=== PATIENT | male | born 1970 | race Caucasian/White ===

== ENCOUNTER 2018-08-30 10:59 | Emergency (ER) | payer OTHER ==
[~2018-08-30] VITALS: Ht 175.3 cm; Wt 108.9 kg
[~2018-08-30 10:59] MED LIST: AMLODIPINE10 M1 PO; CALCITRIOL0.5 MCG PO; CALCIUM ACETAT667 M3 PO; CARVEDILOL6.25 M1 PO; EXFORGE PO; KLOR-CON 88 MEQ PO; LAC PO; LASIX40 MG PO; NORCO1 TA2 PO; OMEPRAZOLE20 M2 PO; ULORIC PO; Z5 PO
[2018-08-30 11:09] VITALS: Ht 175.3 cm; Wt 108.9 kg
[2018-08-30 12:01] LABS: BASOPHIL % 0.3 % (0-2); PLATELET COUNT 203 x10^3mcL (130-400)
[2018-08-30 12:03] LABS: RED CELL DISTRIBUTION WIDTH 16.3 % (11.5-14.5)
[2018-08-30 12:20] LABS: ALBUMIN 3.9 g/dL (3.4-5.0); BILIRUBIN TOTAL 0.92 mg/dL (0.20-1.00); CALCIUM 8.7 mg/dL (8.5-10.1); CARBON DIOXIDE 31.7 mmol/L (21-32); POTASSIUM SERUM 4.5 mmol/L (3.5-5.1)
[2018-08-30 12:22] LABS: CREATININE SERUM 7.1 mg/dL (0.7-1.3); TOTAL PROTEIN, SERUM 8.8 g/dL (6.4-8.2)
[2018-08-30 14:11] VITALS: BP 115/80
== END 2018-08-30 14:11 | disposition home or self-care (01) ==
LOC: ED 10:59
PROVIDERS: Emergency Medicine
DX: T82.838A Hemorrhage due to vascular prosthetic devices, implants and grafts, initial encounter (principal); I10 Essential (primary) hypertension; E11.9 Type 2 diabetes mellitus without complications; Z99.2 Dependence on renal dialysis; Z88.8 Allergy status to other drugs, medicaments and biological substances; Z88.0 Allergy status to penicillin; Z88.2 Allergy status to sulfonamides; X58.XXXA Exposure to other specified factors, initial encounter; Y93.89 Activity, other specified; Y92.89 Other specified places as the place of occurrence of the external cause; Y99.8 Other external cause status
CPT/HCPCS: 36415; J2001